=== PATIENT | male | born 1955 | race Caucasian/White ===

== ENCOUNTER 2016-10-28 12:38 | Emergency (ER) | payer MEDICAID ==
[2016-10-28 12:40] VITALS: RESP 16
[2016-10-28 12:55] VITALS: RESP 16
[2016-10-28 13:06] VITALS: RESP 18
[2016-10-28] MEDS ORDERED: SODIUM CHLORIDE 0.9% 1,000 ML ONE (13:43)
[2016-10-28 13:45] VITALS: RESP 24
[2016-10-28] MEDS ORDERED: EPINEPHrine 1 MG/10 ML SYR IV ONE (17:07)
[2016-10-28] MEDS ORDERED: SOD BICARB 8.4% SYR 50 ML ONE (17:07)
== END 2016-10-28 17:23 | disposition expired ==
LOC: ER 12:38
DX: I46.8 Cardiac arrest due to other underlying condition (principal); R09.2 Respiratory arrest; J96.02 Acute respiratory failure with hypercapnia; J44.1 Chronic obstructive pulmonary disease with (acute) exacerbation; F17.210 Nicotine dependence, cigarettes, uncomplicated
CPT/HCPCS: 36415; 36600; 51702; 71010; 80051; 81001; 82140; 82330; 82803; 82947; 83605; 83880; 85025; 85610; 87040; 92950; 93005; 94799; 96361; 96365; 96375; 96376